=== PATIENT | male | born 1965 | race Caucasian/White ===

== ENCOUNTER 2018-05-06 01:07 | Emergency (ER) | payer OTHER ==
[2018-05-06 01:13] VITALS: TEMP 98.3
[2018-05-06] MEDS ORDERED: MORPHINE SULFATE 4 MG/ML SYRINGE IM STA (01:36)
[2018-05-06] MEDS ORDERED: ONDANSETRON ODT 4 MG TAB PO STA (01:36)
[2018-05-06] MEDS ORDERED: KETOROLAC 60 MG/2 ML VIAL IM STA (01:36)
--- NOTE | 2018-05-06 01:43 | ED ---
General Adult HPI - General Chief complaint: Abdominal Pain Stated complaint: kidney stone Time Seen by Provider: 05/06/18 01:29 Source: patient, RN notes reviewed Mode of arrival: ambulatory Limitations: no limitations - History of Present Illness Initial comments: Patient 52-year-old male significant past medical history for kidney stones, presented to the emergency room today with a chief complaint of right-sided flank pain that started approximately 2 hours ago. He does not that he seen some hematuria over the last few days. States that he began having increased sharp pain in the right side lower back proxy 2 hours ago. To take [place] at home with little relief. Patient does not that the symptoms are consistent with kidney stones that is had in the past. She states had multiple stones. 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 Patient does admit to nausea. Patient denies any other complaints or symptoms. Patient denies any recent fever, chills, shortness of breath, chest pain, back pain, abdominal pain , nausea or vomiting, headaches or visual changes, or any other complaints. - Related Data Previous Rx's Medication Instructions Recorded Sulfamethox-Tmp 800-160Mg [Bactrim 1 tab PO Q12HR #20 tab 05/06/18 DS 800-160 mg] Tamsulosin [Flomax] 0.4 mg PO DAILY #10 cap 05/06/18 Allergies Allergy/AdvReac Type Severity Reaction Status Date / Time No Known Allergies Allergy Verified 05/06/18 01:13 Review of Systems ROS Statement: Those systems with pertinent positive or pertinent negative responses have been documented in the HPI. ROS Other: All systems not noted in ROS Statement are negative. Past Medical History Past Medical History: Diabetes Mellitus, Hypertension Additional Past Medical History / Comment(s): kidney stones, History of Any Multi-Drug Resistant Organisms: None Reported Additional Past Surgical History / Comment(s): vasectomy, Past Psychological History: No Psychological Hx Reported Smoking Status: Never smoker Past Alcohol Use History: Occasional Past Drug Use History: None Reported General Exam - General Exam Comments Initial Comments: General: The patient is awake and alert. Eye: Pupils are equal, round and reactive to light, extra-ocular movements are intact. No nystagmus. There is normal conjunctiva bilaterally. No signs of icterus. Ears, nose, mouth and throat: There are moist mucous membranes and no oral lesions. Neck: The neck is supple, there is no tenderness or JVD. Cardiovascular: There is a regular rate and rhythm. No murmur, rub or gallop is appreciated. Respiratory: Lungs are clear to auscultation, respirations are non-labored, breath sounds are equal. No wheezes, stridor, rales, or rhonchi. Gastrointestinal: Soft on palpation. Patient does have tenderness right flank. No rebound, guarding or CVA tenderness. Musculoskeletal: Normal ROM, no tenderness. Strength 5/5. Sensation intact. Pulses equal bilaterally 2+. Neurological: A&O x 3. CN II-XII intact, There are no obvious motor or sensory deficits. Coordination appears grossly intact. Speech is normal. Skin: Skin is warm and dry and no rashes or lesions are noted. Psychiatric: Cooperative, appropriate mood & affect, normal judgment. Limitations: no limitations Course Vital Signs 05/06/18 01:08 Temperature 98.3 F Pulse Rate 62 Respiratory 18 Rate Blood Pressure 158/93 O2 Sat by Pulse 99 Oximetry Medical Decision Making - Medical Decision Making Patient's x-ray reviewed does show nephrolithiasis on the right. Patient's urinalysis does show large amount of blood with 82 white cells. Patient's vitals are stable. Patient's states symptoms are consistent with stones that is had in the past. Patient given dose of Rocephin here the emergency room. He is currently comfortable after Toradol, morphine and Zofran. Patient be discharged home advised continue with his [place] and anti-inflammatories. Given a prescription for antibiotics along with Flomax. Is advised following up with urologist over the next 2 days returning if symptoms increase or worsen. - Lab Data Lab Results 05/06/18 Range/Units 01:44 Urine Color Yellow Urine Appearance Cloudy (Clear) Urine pH 6.0 (5.0-8.0) Ur Specific Wells 1.019 (1.001-1.035) Urine Protein Trace H (Negative) Urine Glucose (UA) Negative (Negative) Urine Ketones Trace H (Negative) Urine Blood Large H (Negative) Urine Nitrite Negative (Negative) Urine Bilirubin Negative (Negative) Urine Urobilinogen 2.0 (<2.0) mg/dL Ur Leukocyte Esterase Moderate H (Negative) Urine RBC >182 H (0-5) /hpf Urine WBC 82 H (0-5) /hpf Ur Squamous Epith Cells 2 (0-4) /hpf Urine Mucus Rare H (None) /hpf Disposition Clinical Impression: Kidney stone Disposition: HOME SELF-CARE Condition: Good Instructions: Kidney Stones (ED) Additional Instructions: Please follow-up with the family doctor or urologist over the next 2 days return here to the emergency room if any symptoms increase worsen or for any other concerns as discussed. Prescriptions: Sulfamethox-Tmp 800-160Mg [Bactrim DS 800-160 mg] 1 tab PO Q12HR #20 tab Tamsulosin [Flomax] 0.4 mg PO DAILY #10 cap Is patient prescribed a controlled substance at d/c from ED?: No Referrals: Benedicto Lou MD [Primary Care Provider] - 1-2 days Roby Sheehan MD [STAFF PHYSICIAN] - 1-2 days Time of Disposition: 02:29
[2018-05-06 01:57] LABS: Appearance,Urine Cloudy (Clear); Bilirubin,Urine Negative (Negative); Blood,Urine Large (Negative); Color,Urine Yellow; Glucose,Urine (UA) Negative (Negative); Ketones,Urine Trace (Negative); Leukocyte Esterase,Urine Moderate (Negative); Mucus,Urine Rare /hpf; Nitrite,Urine Negative (Negative); Protein,Urine Trace (Negative); RBC,Urine >182 /hpf (0-5); Specific Gravity,Urine 1.019 (1.001-1.035); Squamous Epithelial Cell,Urine 2 /hpf (0-4); WBC,Urine 82 /hpf (0-5)
--- NOTE | 2018-05-06 02:04 | XR ---
EXAMINATION TYPE: XR KUB DATE OF EXAM: 05/06/2018 COMPARISON: NONE HISTORY: Right flank pain TECHNIQUE: 2 views FINDINGS: There is no sign of intestinal obstruction or pneumoperitoneum. Fecal pattern is normal. Maryjane ng bases are clear. There are no pathologic calcifications over the kidneys. IMPRESSION: Nonacute abdomen.
[2018-05-06] MEDS ORDERED: cefTRIAXone 1,000 MG VIAL (IM USE) IM STA (02:26)
[2018-05-06 02:40] VITALS: BP 133/86; PULSE 66; RESP 16
== END 2018-05-06 02:43 | disposition home or self-care (01) ==
LOC: EC 01:07
DX: N20.0 Calculus of kidney (principal); Z98.52 Vasectomy status
CPT/HCPCS: 99284; 96372 ×3; 81001; 87086; 74018; J2270; J0696; J1885

== ENCOUNTER → 2018-08-29 | Outpatient (CLI) | payer OTHER ==
[2018-08-30 02:51] LABS: Calcium 9.7 mg/dL (8.7-10.3); Carbon Dioxide 28.4 mmol/L (21.6-31.8); Phosphorus 4.1 mg/dL (2.4-5.1); Uric Acid 7.2 mg/dL (3.7-8.7)
== END | disposition home or self-care (01) ==
LOC: LABWHC1 15:50
PROVIDERS: ATTEND Urology
DX: N20.0 Calculus of kidney (principal)
CPT/HCPCS: 36415; 82310; 82374; 82435; 82565; 83970; 84100; 84550

== ENCOUNTER → 2018-09-01 | Outpatient (CLI) | payer OTHER ==
[2018-09-02 11:30] LABS: Calcium 9.4 mg/dL (8.7-10.3); Carbon Dioxide 22.7 mmol/L (21.6-31.8); Phosphorus 4.4 mg/dL (2.4-5.1); Uric Acid 6.6 mg/dL (3.7-8.7)
[2018-09-02 14:07] LABS: Creatinine 24 Hour,Urine 1.79 g/24Hr (1.00-2.00)
[2018-09-02 14:10] LABS: Calcium 24 Hour,Urine 312.1 mg/24Hr (100.0-300.0)
[2018-09-02 18:45] LABS: Uric Acid 24 Hour,Urine 0.75 g/24Hr (0.25-0.75)
== END | disposition home or self-care (01) ==
LOC: LABWHC1 15:57
PROVIDERS: ATTEND Urology
DX: N20.0 Calculus of kidney (principal)
CPT/HCPCS: 36415; 81050; 82310; 82340; 82374; 82435; 82565; 82570; 83970; 84100; 84550; 84560